=== PATIENT | female | born 1985 | race Caucasian/White ===

== ENCOUNTER 2019-01-19 17:30 | Emergency (ER) | payer OTHER, SELFPAY ==
--- NOTE | 2019-01-19 18:53 | RAD REPORT ---
EXAM DESCRIPTION: RAD - Hand Right 3 View - 01/19/2019 6:29 pm CLINICAL HISTORY: Right hand pain status post injury FINDINGS: No fracture or dislocation is seen.
--- NOTE | 2019-01-19 19:22 | ER ---
Nurse's Notes [facility] Name: Inessa Caballero Age: 33 yrs Sex: Female : 1985 Arrival Date: 01/19/2019 Time: 17:34 Bed 24 Private MD: Diagnosis: Right middle finger contusion Presentation: 01/19 17:34 Presenting complaint: Patient states: was helping my put his belt on his car hj and hurt my R middle finger, happened yesterday 5 pm; pain is 2/10;. Transition of care: patient was not received from another setting of care. Onset of symptoms was January 19, 2019. Risk Assessment: Do you want to hurt yourself or someone else? Patient reports no desire to harm self or others. Initial Sepsis Screen: Does the patient meet any 2 criteria? No. Patient's initial sepsis screen is negative. Does the patient have a suspected source of infection? No. Patient's initial sepsis screen is negative. Care prior to arrival: None. 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 - Ebola Screening: : Patient denies travel to an Ebola-affected area in the 21 days before illness onset. Screenin:42 Abuse screen: Denies threats or abuse. Denies injuries from another. Nutritional aj1 screening: No deficits noted. Tuberculosis screening: No symptoms or risk factors identified. 19:34 Fall Risk None identified. aj1 Assessment: 17:42 General: Appears in no apparent distress. comfortable, Behavior is calm, cooperative. aj1 Pain: Complains of pain in dorsal aspect of distal phalanx of right middle finger and dorsal aspect of middle phalanx of right middle finger Pain currently is 2 out of 10 on a pain scale. Neuro: Level of Consciousness is awake, alert, obeys commands, Oriented to person, place, time, situation. Cardiovascular: Patient's skin is warm and dry. Respiratory: Airway is patent Respiratory effort is even, unlabored, Respiratory pattern is regular, symmetrical. GI: No signs and/or symptoms were reported involving the gastrointestinal system. : No signs and/or symptoms were reported regarding the genitourinary system. EENT: No signs and/or symptoms were reported regarding the EENT system. Derm: No signs and/or symptoms reported regarding the dermatologic system. Skin is pink, warm \T\ dry. normal. Musculoskeletal: Range of motion: limited in DIP of right middle finger and PIP of right middle finger. 18:35 Reassessment: Patient appears in no apparent distress at this time. No changes from aj1 previously documented assessment. Patient and/or family updated on plan of care and expected duration. Pain level reassessed. Patient is alert, oriented x 3, equal unlabored respirations, skin warm/dry/pink. 19:33 Reassessment: Patient appears in no apparent distress at this time. No changes from aj1 previously documented assessment. Patient and/or family updated on plan of care and expected duration. Pain level reassessed. Patient is alert, oriented x 3, equal unlabored respirations, skin warm/dry/pink. Vital Signs: 17:36 BP 133 / 82; Pulse 102; Resp 16; Temp 98.2(O); Pulse Ox 100% on R/A; Weight 56.7 kg; Height 5 ft. 6 in. (167.64 cm); Pain 2/10; 18:35 BP 128 / 95; Pulse 104; Resp 16; Pulse Ox 97% on R/A; aj1 19:33 BP 122 / 65; Pulse 105; Resp 20; Pulse Ox 100% on R/A; aj1 17:36 Body Mass Index 20.18 (56.70 kg, 167.64 cm) ED Course: 17:34 Patient arrived in ED. mr 17:36 Triage completed. hj 17:36 Arm band placed on left wrist. hj 17:38 Lavern Sanchez, RN is Primary Nurse. aj1 17:42 Patient has correct armband on for positive identification. Bed in low position. Call aj1 light in reach. Side rails up X 1. 17:42 No provider procedures requiring assistance completed. aj1 17:50 Kyle Luna MD is Attending Physician. ps1 18:29 XRAY Hand RIGHT 3 View In Process Unspecified. EDMS 19:33 Patient did not have IV access during this emergency room visit. aj1 Administered Medications: No medications were administered Outcome: 19:21 Discharge ordered by . ps1 19:34 Discharged to home ambulatory. aj1 19:34 Condition: good 19:34 Discharge instructions given to patient, Instructed on discharge instructions, follow up and referral plans. medication usage, Demonstrated understanding of instructions, follow-up care, medications, Prescriptions given X 2. 19:36 Patient left the ED. aj1 Signatures: Dispatcher [employer] EDMS Lavern Sanchez RN RN ajAdrianna Ross mr Jesse Jimenez RN RN hj Singer, Phillip, MD MD ps1 Corrections: (The following items were deleted from the chart) 17:38 17:36 Pulse 102bpm; Resp 16bpm; Pulse Ox 100% RA; Temp 98.2F Oral; 56.7 kg; Height 5 hj ft. 6 in.; BMI: 20.1; Pain 2/10; hj
--- NOTE | 2019-01-19 19:22 | EDPHYS ---
Physician Documentation [facility] Name: Inessa Caballero Age: 33 yrs Sex: Female : 1985 Arrival Date: 01/19/2019 Time: 17:34 Bed 24 Private MD: ED Physician Kyle Luna HPI: 01/19 19:09 This 33 yrs old Female presents to ER via Ambulatory with complaints of ps1 Finger Injury. 19:10 patient has right middle finger injury from working on a tire. Has moderate bruising ps1 around the site. Has FROM. Good cap refill. . 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 - Ebola Screening: : Patient denies travel to an Ebola-affected area in the 21 days before illness onset. ROS: 19:10 Constitutional: Negative for fever, chills, and weight loss, Eyes: Negative for injury, ps1 pain, redness, and discharge, Cardiovascular: Negative for chest pain, palpitations, and edema, Respiratory: Negative for shortness of breath, cough, wheezing, and pleuritic chest pain, Abdomen/GI: Negative for abdominal pain, nausea, vomiting, diarrhea, and constipation, Skin: Negative for injury, rash, and discoloration, Neuro: Negative for headache, weakness, numbness, tingling, and seizure. 19:10 MS/extremity: Positive for contusion, tenderness. Exam: 19:10 Constitutional: This is a well developed, well nourished patient who is awake, alert, ps1 and in no acute distress. Head/Face: Normocephalic, atraumatic. Eyes: Pupils equal round and reactive to light, extra-ocular motions intact. Lids and lashes normal. Conjunctiva and sclera are non-icteric and not injected. Chest/axilla: Normal chest wall appearance and motion. Nontender with no deformity. No lesions are appreciated. Cardiovascular: Regular rate and rhythm. No gallops, murmurs, or rubs. Normal PMI, no JVD. No pulse deficits. Respiratory: Lungs have equal breath sounds bilaterally, clear to auscultation and percussion. No rales, rhonchi or wheezes noted. No increased work of breathing, no retractions or nasal flaring. Abdomen/GI: Soft, non-tender, with normal bowel sounds. No distension or tympany. No guarding or rebound. No evidence of tenderness throughout. Skin: Warm, dry with normal turgor. Normal color with no rashes, no lesions, and no evidence of cellulitis. Neuro: Awake and alert, GCS 15, oriented to person, place, time, and situation. Cranial nerves II-XII grossly intact. Sensory grossly intact. 19:10 Musculoskeletal/extremity: Extremities: grossly normal except: noted in the PIP of right middle finger and DIP of right middle finger: contusion, pain. Vital Signs: 17:36 BP 133 / 82; Pulse 102; Resp 16; Temp 98.2(O); Pulse Ox 100% on R/A; Weight 56.7 kg; hj Height 5 ft. 6 in. (167.64 cm); Pain 2/10; 18:35 BP 128 / 95; Pulse 104; Resp 16; Pulse Ox 97% on R/A; aj1 19:33 BP 122 / 65; Pulse 105; Resp 20; Pulse Ox 100% on R/A; aj1 17:36 Body Mass Index 20.18 (56.70 kg, 167.64 cm) hj MDM: 19:01 Patient medically screened. ps1 19:10 Data reviewed: vital signs, nurses notes, radiologic studies, plain films, and as a ps1 result, I will discharge patient. Counseling: I had a detailed discussion with the patient and/or guardian regarding: the historical points, exam findings, and any diagnostic results supporting the discharge/admit diagnosis, radiology results, to return to the emergency department if symptoms worsen or persist or if there are any questions or concerns that arise at home. 01/19 17:40 Order name: XRAY Hand RIGHT 3 View; Complete Time: 19:02 mg2 Administered Medications: No medications were administered Disposition: 01/19/19 19:21 Discharged to Home. Impression: Right middle finger contusion. - Condition is Stable. - Discharge Instructions: Contusion. - Prescriptions for Anaprox DS 550 mg Oral Tablet - take 1 tablet by ORAL route every 12 hours As needed; 20 tablet. Medrol (Ponce) 4 mg Oral Tablets, Dose Pack - take 1 tablet by ORAL route as directed - follow package instructions; 1 packet. - Medication Reconciliation Form, Thank You Letter, Antibiotic Education, Prescription Opioid Use form. - Follow up: Emergency Department; When: As needed; Reason: Worsening of condition. Follow up: Private Physician; When: As needed; Reason: Further diagnostic work-up, Recheck today's complaints, Re-evaluation by your physician. - Problem is new. - Symptoms are unchanged. Signatures: Dispatcher [employer] EDLavern Brito RN RN aj1 Jesse Jimenez RN RN hj Kyle Luna MD MD ps1 Corrections: (The following items were deleted from the chart) 19:36 19:21 01/19/2019 19:21 Discharged to Home. Impression: Right middle finger contusion. aj1 Condition is Stable. Forms are Medication Reconciliation Form, Thank You Letter, Antibiotic Education, Prescription Opioid Use. Follow up: Emergency Department; When: As needed; Reason: Worsening of condition. Follow up: Private Physician; When: As needed; Reason: Further diagnostic work-up, Recheck today's complaints, Re-evaluation by your physician. Problem is new. Symptoms are unchanged. ps1
== END 2019-01-19 19:36 | disposition home or self-care (01) ==
LOC: ER 17:30
DX: S60.031A Contusion of right middle finger without damage to nail, initial encounter (principal); X58.XXXA Exposure to other specified factors, initial encounter; Y93.89 Activity, other specified; Y92.9 Unspecified place or not applicable
CPT/HCPCS: 99283

== ENCOUNTER 2023-04-25 13:42 | Emergency (ER) | payer OTHER ==
--- OUTSIDE RECORDS SUMMARY | 2023-04-25 13:46 | XMS REPORT | Continuity of Care Document ---
:1985 Author Organization [facility] t Address [address] [place] [id number] Care Team Providers Name Role Phone RAPHAEL CAMERON Attending Clinician Unavailable Payers Payer Name Policy Type Policy Number Effective Date Expiration Date S madhu [facility] [id number] 2020 [employer] PLAN 00:00:00 Problems This patient has no known problems. Allergies, Adverse Reactions, Alerts This patient has no known allergies or adverse reactions. Medications This patient has no known medications. Procedures This patient has no known procedures. Encounters Start End Encounter Admission Attending Care Care Encounter Source Date/Time Date/Time Type Type Clinicians Facility Department ID 2020-11-26 Outpatient NISHA [facility] [id number] 8 [place] 03:50:28 [facility] Results This patient has no known results.
[2023-04-25] MEDS ORDERED: ASPIRIN 81 MG CHEWABLE TABLET ONE (14:54)
[2023-04-25 14:55] LABS: Absolute Lymphocytes (CBC) 1.7 K/uL (0.7-4.9); Hematocrit 42.6 % (36.0-45.0); Lymphocytes % 39.8 % (15.3-44.8); MPV 7.6 fL (7.6-11.3); Platelets 269 thou/uL (152-406); RBC Red Blood Cell Count 4.54 M/uL (3.86-4.86)
[2023-04-25 15:13] LABS: Magnesium 2.4 mg/dL (1.6-2.4); Potassium 4.2 mEq/L (3.5-5.1); Troponin High Sensitivity 3.3 pg/mL (<58.9)
--- NOTE | 2023-04-25 15:36 | RAD REPORT ---
EXAM DESCRIPTION: RAD - Chest Single View - 04/25/2023 3:30 pm CLINICAL HISTORY: CHEST PAIN Chest pain. COMPARISON: No comparisons FINDINGS: Portable technique limits examination quality. The lungs are grossly clear. The heart is normal in size. No displaced fractures. IMPRESSION: No acute intrathoracic process suspected.
--- NOTE | 2023-04-25 16:28 | EDPHYS ---
Physician Documentation [facility] Name: Inessa Caballero Age: 37 yrs Sex: Female : 1985 Arrival Date: 04/25/2023 Time: 13:42 Bed 12 Private MD: ED Physician Christopher Liz HPI: 04/25 13:56 This 37 yrs old Female presents to ER via Unassigned with complaints of Chest Pain, ms3 Syncope, Palpitations. 13:56 37-year-old female with past medical history of POTS, hypothyroidism presents for chest ms3 pain that began last night that woke her up during the night. Patient states during that time the pain felt like pressure and she had shortness of breath associated with the episode. Patient states her pain is currently 2/10 and is a soreness in her chest. Patient denies nausea, vomiting, sweats. Patient denies oral contraceptives. 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 - Social history:: Smoking status: Patient denies any tobacco usage or history of. Patient/guardian denies using alcohol. ROS: 13:56 Constitutional: Negative for fever, and chills. Neck: Negative for injury, pain, and ms3 swelling, Respiratory: Negative for shortness of breath, cough, wheezing, and pleuritic chest pain, 13:56 Abdomen/GI: Negative for abdominal pain, nausea, vomiting, diarrhea, and constipation, MS/Extremity: Negative for injury and deformity, Skin: Negative for injury, rash, and discoloration, 13:56 Cardiovascular: Positive for chest pain, 13:56 All other systems are negative, Exam: 13:56 Constitutional: This is a well developed, well nourished patient who is awake, alert, ms3 and in no acute distress. Head/Face: Normocephalic, atraumatic. Neck: Trachea midline, no cervical lymphadenopathy. Supple, full range of motion without nuchal rigidity, or vertebral point tenderness. No Meningismus. Chest/axilla: Normal chest wall appearance and motion. Nontender with no deformity. Cardiovascular: Regular rate and rhythm with a normal S1 and S2. No gallops, murmurs, or rubs. Normal PMI, no JVD. No pulse deficits. Respiratory: Lungs have equal breath sounds bilaterally, clear to auscultation and percussion. No rales, rhonchi or wheezes noted. No increased work of breathing, no retractions or nasal flaring. Abdomen/GI: Soft, non-tender, with normal bowel sounds. No distension or tympany. No guarding or rebound. No evidence of tenderness throughout. Skin: Warm, dry with normal turgor. Normal color with no rashes, no lesions, and no evidence of cellulitis. MS/ Extremity: Pulses equal, no cyanosis. Neurovascular intact. Full, normal range of motion. 14:31 ECG was reviewed by the Attending Physician. ms3 Vital Signs: 13:56 BP 122 / 88; Pulse 98; Resp 18; Temp 98.4(O); Pulse Ox 98% on R/A; Weight 70.31 kg; ld1 Height 5 ft. 6 in. ; Pain 2/10; 16:44 BP 111 / 88; Pulse 91; Resp 16 S; Pulse Ox 100% on R/A; Pain 9/10; cm10 13:56 Body Mass Index 25.02 (70.31 kg, 167.64 cm) ld1 13:56 Pain Scale: Adult ld1 16:44 Pain Scale: Adult cm10 MDM: 13:55 Patient medically screened. ms3 13:56 Differential diagnosis: abnormal EKG, chest wall pain, pulmonary embolus. Scoring Tools ms3 PERC Rule for PE Age > /= 50 No (0) HR > /= 100 No (0) O2 Sat Room Air < 95% No (0) Unilateral leg swelling No (0) Hemoptysis No (0) Recent surgery or trauma </= 4 weeks ago, requiring treatment with General Anesthesia No (0) Prior PE or DVT No (0) Hormone use No (0). 16:30 HEART Score: History: Slightly Suspicious (0), ECG: Normal (0), Age: < or = 45 years ms3 (0), Risk Factors: No Risk Factors Known (0), Troponin: < or = 1 x Normal Limit (0), Total Score = 0. Data reviewed: vital signs, nurses notes, lab test result(s), EKG, radiologic studies, and as a result, I will discharge patient. Consideration of Admission/Observation Escalation of care including admission/observation considered. Heart score 0, troponin 3.3. I considered the following discharge prescriptions or medication management in the emergency department. Independent interpretation of the following test(s) in the Emergency Department EKG: See my EKG interpretation above X-Ray: My interpretation is Chest x-ray image reviewed by me does not reveal pneumonia, pneumothorax, pulmonary edema. Counseling: I had a detailed discussion with the patient and/or guardian regarding the historical points, exam findings, and any diagnostic results supporting the discharge/admit diagnosis, lab results, radiology results, the need for outpatient follow up, to return to the emergency department if symptoms worsen or persist or if there are any questions or concerns that arise at home. Special discussion: Based on the patient's history, exam, and Dx evaluation, there is no indication for emergent intervention or inpatient Tx. It is understood by the patient/guardian that if the Sx's persist or worsen they need to return immediately for re-evaluation. ED course: Discussed labs, EKG, chest x-ray with patient and her mother. Patient to follow-up with Dr. Blount in 1 to 2 days. Patient understands and agrees with plan. All questions were answered. Return precautions discussed include worsening symptoms, or any other concerns. On reevaluation patient is alert and orient x4, no apparent distress, nontoxic-appearing, ambulatory number department, speaking full sentences. 04/25 13:47 Order name: Basic Metabolic Panel; Complete Time: 15:29 ms3 04/25 13:47 Order name: CBC with Diff; Complete Time: 15:29 ms3 04/25 13:47 Order name: Magnesium; Complete Time: 15:29 ms3 04/25 13:47 Order name: Troponin HS; Complete Time: 15:29 ms3 04/25 13:47 Order name: XRAY Chest (1 view); Complete Time: 16:05 ms3 04/25 13:47 Order name: EKG; Complete Time: 13:48 ms3 04/25 13:47 Order name: EKG - Nurse/Tech; Complete Time: 13:56 ms3 04/25 13:47 Order name: IV Saline Lock; Complete Time: 14:47 ms3 04/25 13:47 Order name: Labs collected and sent; Complete Time: 14:47 ms3 04/25 13:47 Order name: O2 Per Protocol; Complete Time: 14:40 ms3 04/25 13:47 Order name: O2 Sat Monitoring; Complete Time: 14:40 ms3 EC:31 Rate is 91 beats/min. Rhythm is regular. Right axis deviation noted. NV interval is ms3 normal. QRS interval is normal. Clinical impression: Normal ECG. Interpreted by me. Reviewed by me. Administered Medications: 14:48 Drug: Aspirin PO Chewable Tablet 324 mg PO once; 81 mg tablets x 4 Route: PO; ld1 Disposition Summary: 04/25/23 16:27 Discharge Ordered Notes: Location: Home ms3 Condition: Stable ms3 Diagnosis - Chest pain, unspecified ms3 Followup: ms3 - With: Oneil Walters MD - When: 2 - 3 days - Reason: Recheck today's complaints Discharge Instructions: - Nonspecific Chest Pain, Adult ms3 - Discharge Summary Sheet cm10 Forms: - Medication Reconciliation Form ms3 - Thank You Letter ms3 - Antibiotic Education ms3 - Prescription Opioid Use ms3 - Patient Portal Instructions ms3 - Leadership Thank You Letter ms3 - Work release form cm10 Signatures: Dispatcher [employer] EDMS Christopher Liz, DO ms3 Emily Liz RN RN ld1
--- NOTE | 2023-04-25 16:28 | ER ---
Nurse's Notes [facility] Name: Inessa Caballero Age: 37 yrs Sex: Female : 1985 Arrival Date: 04/25/2023 Time: 13:42 Bed 12 Private MD: Diagnosis: Chest pain, unspecified Presentation: 04/25 13:56 Chief complaint: Patient states: Woke up this morning with chest pain. Denies N/V/D. ld1 Coronavirus screen: At this time, the client does not indicate any symptoms associated with coronavirus-19. Ebola Screen: No symptoms or risks identified at this time. Initial Sepsis Screen: Does the patient meet any 2 criteria? No. Patient's initial sepsis screen is negative. Does the patient have a suspected source of infection? No. Patient's initial sepsis screen is negative. Risk Assessment: Do you want to hurt yourself or someone else? Patient reports no desire to harm self or others. Onset of symptoms was April 25, 2023. 13:56 Method Of Arrival: Ambulatory ld1 13:56 Acuity: CHRISTIAN 3 ld1 Triage Assessment: 13:57 General: Appears in no apparent distress. comfortable, Behavior is calm, cooperative, ld1 appropriate for age. Pain: Complains of pain in chest Pain does not radiate. Pain currently is 2 out of 10 on a pain scale. Quality of pain is described as throbbing. EENT: No signs and/or symptoms were reported regarding the EENT system. Neuro: Level of Consciousness is awake, alert, obeys commands, Oriented to person, place, time, situation. Cardiovascular: Capillary refill < 3 seconds Patient's skin is warm and dry. Rhythm is sinus rhythm. Respiratory: Airway is patent Respiratory effort is even, unlabored. GI: Abdomen is flat, non-distended. : No signs and/or symptoms were reported regarding the genitourinary system. Derm: No signs and/or symptoms reported regarding the dermatologic system. Musculoskeletal: No signs and/or symptoms reported regarding the musculoskeletal system. 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 - Social history:: Smoking status: Patient denies any tobacco usage or history of. Patient/guardian denies using alcohol. Screenin:45 [facility] ED Fall Risk Assessment (Adult) History of falling in the last 3 months, cm10 including since admission No falls in past 3 months (0 pts) Confusion or Disorientation No (0 pts) Intoxicated or Sedated No (0 pts) Impaired Gait No (0 pts) Mobility Assist Device Used No (0 pt) Altered Elimination No (0 pt) Score/Fall Risk Level 0 - 2 = Low Risk Oriented to surroundings, Maintained a safe environment, Hourly rounding (assess needs \T\ fall precautionary measures) done. Abuse screen: Denies threats or abuse. Denies injuries from another. Nutritional screening: No deficits noted. Tuberculosis screening: No symptoms or risk factors identified. Assessment: 16:45 Reassessment: Patient appears in no apparent distress at this time. Patient and/or cm10 family updated on plan of care and expected duration. Pain level reassessed. Patient is alert, oriented x 3, equal unlabored respirations, skin warm/dry/pink. Patient denies pain at this time. Patient states feeling better. Patient states symptoms have improved. Pain: Denies pain. 16:46 Pain: Pain began 1 day ago. cm10 Vital Signs: 13:56 BP 122 / 88; Pulse 98; Resp 18; Temp 98.4(O); Pulse Ox 98% on R/A; Weight 70.31 kg; ld1 Height 5 ft. 6 in. ; Pain 2/10; 16:44 BP 111 / 88; Pulse 91; Resp 16 S; Pulse Ox 100% on R/A; Pain 9/10; cm10 13:56 Body Mass Index 25.02 (70.31 kg, 167.64 cm) ld1 13:56 Pain Scale: Adult ld1 16:44 Pain Scale: Adult cm10 ED Course: 13:45 Patient arrived in ED. im 13:46 Christopher Liz DO is Attending Physician. ms3 13:57 Triage completed. ld1 13:57 Arm band placed on right wrist. ld1 14:47 Emily Liz, RN is Primary Nurse. ld1 14:48 No provider procedures requiring assistance completed. Inserted saline lock: 22 gauge ld1 in right antecubital area, using aseptic technique. Blood collected. 15:31 XRAY Chest (1 view) In Process Unspecified. EDMS 16:27 Oneil Walters MD is Referral Physician. ms3 16:45 Patient has correct armband on for positive identification. Provided Education on: ER cm10 process and procedures.. 16:46 Pulse ox on. NIBP on. cm10 16:46 IV discontinued, intact, bleeding controlled, No redness/swelling at site. Pressure cm10 dressing applied. 16:46 Patient maintains SpO2 saturation greater than 95% on room air. cm10 Administered Medications: 14:48 Drug: Aspirin PO Chewable Tablet 324 mg PO once; 81 mg tablets x 4 Route: PO; ld1 Medication: 16:45 VIS not applicable for this client. cm10 Outcome: 16:27 Discharge ordered by . ms3 16:46 Discharged to home ambulatory, with family, cm10 16:46 Condition: good 16:46 Discharge instructions given to patient, Instructed on discharge instructions, follow up and referral plans. Demonstrated understanding of instructions, follow-up care, 16:46 Patient left the ED. cm10 Signatures: Dispatcher [employer] EDMS Christopher Liz DO DO ms3 Emily Liz, RN RN ld1 Taylor Garcia Clarissa, RN RN cm10
[2023-04-25 19:25] VITALS: TEMP 98.4
[2023-04-25 19:27] VITALS: BP 111/88; O2SAT 100
--- NOTE | 2023-04-26 12:23 | EKG ---
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
== END 2023-04-25 16:46 | disposition home or self-care (01) ==
LOC: ER 13:42
DX: R07.89 Other chest pain (principal); E03.9 Hypothyroidism, unspecified; G90.A Postural orthostatic tachycardia syndrome [POTS]
CPT/HCPCS: 36415; 71045; 80048; 83735; 84484; 85025; 93005; 99284